=== PATIENT | male | born 1955 | race Caucasian/White ===

== ENCOUNTER 2018-02-23 12:57 | Emergency (ER) | payer BC ==
[2018-02-23 13:02] VITALS: RESP 18
--- NOTE | 2018-02-23 13:45 | EDPHY ---
HPI/HX/ROS/PE/MDM Narrative: CHIEF COMPLAINT: HPI: This patient is a 62 y/o male complaining of upper right leg pain and swelling. 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 He also travelled to [facility] for vacation in the last couple days, and noted a strange "Ja horse" sensation in his right thigh while hiking there. On inspection, he noted an area of redness on his medial thigh with a "raised vein". He returned to [place] today on a series of long flights and reports increased redness and swelling in the same area. He denies any history of blood clots. No chest pain, shortness of breath, swelling in his legs, or pain behind his knees. He has no further complaints. REVIEW OF SYSTEMS: Aside from elements discussed in the HPI, a comprehensive 10-point review of systems was reviewed and is negative. PMH: Hypertension. Psoriasis (Methotrexate, folic acid). SOCIAL HISTORY: . at bedside. 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 PHYSICAL EXAM: General:Patient is alert, in no acute distress. ENT:Eyes are normal to inspection. ENT inspection normal. Neck: Normal inspection. Full range of motion. Respiratory:No respiratory distress. Breath sounds normal bilaterally. Cardiovascular: Regular rate and rhythm. Strong peripheral pulses. Normal cap refill. Abdomen:The abdomen is nontender to palpation. There are no peritoneal signs. There are normal bowel sounds. Back: Normal to inspection. No tenderness to palpation. Skin: Normal color. No rash. Warm and dry. Extremities: Small linear firm area with mild tenderness to medial thigh. Full range of motion. No fluctuance, cellulitis or apparent abscess. Neuro: Oriented x3. Normal motor function. Normal sensory function. ED Course: 62 y/o male presents with upper right leg pain and swelling after several weeks of prolonged travel. Plan for US right lower extremity to rule out DVT. 1500: US reported as negative for DVT or other pathology by Dr. Leiva. On re- evaluation, patient asymptomatic, happy to go home. MDM: This patient presents with unilateral thigh swelling and pain in the setting of recent plane travel. The etiology of his symptoms is unclear, as there is no clinical evidence for rash, abscess, FB or trauma, and DVT US is negative. Patient understands etiology remains unknown and will continue outpatient workup. - Data Points Imaging Results: Imaging Impressions Extremity Venous Study 02/23/18 13:12 Impression: No evidence of deep vein thrombosis in the right lower extremity. Results called and discussed with Arun Bright MD on 02/23/2018 at 15:02 General Time Seen by Provider: 02/23/18 13:09 Initial Vital Signs: Initial Vital Signs Temperature (C) 36.8 C 02/23/18 13:00 Heart Rate 75 02/23/18 13:00 Respiratory Rate 18 02/23/18 13:00 Blood Pressure 138/74 H 02/23/18 13:00 O2 Sat (%) 96 02/23/18 13:00 O2 Delivery Mode Room Air Allergies/Adverse Reactions: Penicillins Allergy (Verified 02/23/18 12:59) Home Medications: Medication Instructions Recorded Benicar 02/23/18 Methotrexate Sodium [Rheumatrex 50 mg PO CONT 02/23/18 2.5 mg (RX)] Departure - Departure Disposition: Home, Routine, Self-Care Clinical Impression: Leg pain Condition: Good Instructions: Leg Pain (ED) Additional Instructions: Rest, heat, [id number] NSAIDs as directed. Return to the emergency department for worsening pain, swelling, shortness of breath, chest pain or other concerns. Referrals: [facility]JAN [Other] - As per Instructions Report Scribed for: Arun Bright Report Scribed by: Crystal Roblero Date of Report: 02/23/18 Time of Report: 13:45 Physician Review and Approval Statement: Portions of this note were transcribed by an ED scribe. I personally performed the history, physical exam, and medical decision making; and confirm the accuracy of the information in the transcribed note.
[2018-02-23 15:14] VITALS: BP 134/60; PULSE 76; TEMP 99.7; O2SAT 98
== END 2018-02-23 15:14 | disposition home or self-care (01) ==
DX: M79.651 Pain in right thigh (principal); I10 Essential (primary) hypertension